=== PATIENT | male | born 1990 | race Hispanic/Latino ===

== ENCOUNTER 2020-02-01 18:30 | Emergency (ER) | payer MEDICAID ==
[~2020-02-01] VITALS: Ht 180.3 cm; Wt 93.0 kg
[2020-02-01] MEDS ORDERED: NORCO 5-325 TA1 EACH PO ×2 (19:42→19:43)
[2020-02-01] MEDS ORDERED: CRUTCH1 EACH ×2 (19:42→19:43)
== END 2020-02-01 20:11 | disposition home or self-care (01) ==
LOC: ED 18:30
DX: S82.851A Displaced trimalleolar fracture of right lower leg, initial encounter for closed fracture (principal); W03.XXXA Other fall on same level due to collision with another person, initial encounter
CPT/HCPCS: 73610; 96374; 96375; 99283-25; J1170; J2405